=== PATIENT | male | born 1965 | race American Indian/Alaskan Native ===

== ENCOUNTER 2018-03-26 01:09 | Emergency (ER) | payer OTHER ==
[2018-03-26 01:10] VITALS: BMI 43.5
[2018-03-26] MEDS ORDERED: Acetaminophen-Codeine 300/30 mg Tab PO STA (02:21)
--- NOTE | 2018-03-26 02:41 | C.PDOC ---
History Of Present Illness 52 year old male presents to the ER with a complaint of pain to the lower gum. Patient attempted to see 2 dentists today but was given referral for dental work on Saturday. He has been taking OTC medication with no relief and is requesting pain medication. Denies fever or tooth discharge. Time Seen by Provider: 03/26/18 01:31 Chief Complaint (Nursing): Dental Pain History Per: Patient History/Exam Limitations: no limitations Onset/Duration Of Symptoms: Days Current Symptoms Are (Timing): Still Present Recent travel outside of the [place]: No Past Medical History Reviewed: Historical Data, Nursing Documentation, Vital Signs Vital Signs: Last Vital Signs Temp 98 F 03/26/18 02:47 Pulse 80 03/26/18 02:47 Resp 14 03/26/18 02:47 BP 130/60 03/26/18 02:47 Pulse Ox 99 03/26/18 03:57 - Medical History PMH: Anxiety, HTN Surgical History: Appendectomy - [facility] Procedures INJECT/INFUSE ELECTROLYT (02/08/14) INJECT/INFUSE NEC (10/24/13) OTHER SKIN & SUBQ I D (06/14/13) REPAIR OF OTH HERNIA OF ANTERIOR ABDOM WALL W GRFT OR PROSTH (08/04/07) VENOUS PUNCTURE NEC (10/29/13) Family History: States: Unknown Family Hx - Social History Hx Tobacco Use: No Hx Alcohol Use: (occasional wine) Hx Substance Use: No Review Of Systems Constitutional: Negative for: Fever, Chills ENT: Positive for: Mouth Pain. Negative for: Mouth Swelling Physical Exam - Physical Exam Appears: Non-toxic Skin: Normal Color, Warm, Dry Head: Atraumatic, Normacephalic Eye(s): bilateral: Normal Inspection Nose: Normal Oral Mucosa: Moist, No Drooling, No Other (swelling to floor of mouth) Tongue: Normal Appearing, No Swelling Lips: Normal Appearing, No Swelling Teeth: Caries (To lower premolar area bilaterally) Gingiva: Normal Appearing, No Erythema, No Swelling Throat: Normal Neck: Normal, No Midline Cervical Tenderness, No Paracervical Tenderness, Supple , No Other (Swelling) ED Course And Treatment O2 Sat by Pulse Oximetry: 99 (Room air) Pulse Ox Interpretation: Normal Progress Note: Motrin and tylenol/codiene administered. Patient reports improvement of pain, will discharge home with Rx and instructions to follow up with PMD or return if symptoms worsen. Disposition Counseled Patient/Family Regarding: Diagnosis, Need For Followup, Rx Given - Disposition Referrals: Non [facility] Provider, [Primary Care Provider] - DENTIST, PRIVATE OFFICE [Other] Disposition: HOME/ ROUTINE Disposition Time: 02:39 Condition: STABLE Additional Instructions: PLEASE FOLLOW UP WITH YOUR DENTIST TAKE MEDICATIONS DIRECTED RETURN TO R IF WORSE Prescriptions: Acetaminophen/Codeine [Tylenol/Codeine 300 MG/30 MG] 1 ea PO Q6 PRN #14 tab PRN Reason: Pain, Severe (8-10) Ibuprofen [Motrin Tab] 800 mg PO QID #20 tab Instructions: Dental Pain (DC) Forms: [facility] (Slovenian) - Clinical Impression Clinical Impression: Pain, dental, Dental caries - PA / [employer] / Resident Statement MD/DO has reviewed & agrees with the documentation as recorded. - Scribe Statement The provider has reviewed the documentation as recorded by the Scribe [place]riel [place] All medical record entries made by the Scribe were at my direction and personally dictated by me. I have reviewed the chart and agree that the record accurately reflects my personal performance of the history, physical exam, medical decision making, and the department course for this patient. I have also personally directed, reviewed, and agree with the discharge instructions and disposition.
[2018-03-26] MEDS ORDERED: Acetaminophen-Codeine 300/30 mg Tab PO ONE (02:45)
[2018-03-26 02:48] VITALS: BP 130/60; PULSE 80; RESP 14; TEMP 98
[2018-03-26 03:53] VITALS: O2SAT 99
== END 2018-03-26 02:48 | disposition home or self-care (01) ==
LOC: SUPCPDRO 01:09 → C.ER 01:09
DX: K02.9 Dental caries, unspecified (principal); I10 Essential (primary) hypertension